=== PATIENT | female | born 1985 | race Two or more races ===

== ENCOUNTER 2016-07-29 02:21 | Emergency (ER) | payer MEDICAID ==
[~2016-07-29] VITALS: Ht 165.1 cm; Wt 71.7 kg
[2016-07-29] MEDS ORDERED: FOLIC ACID1 MG ORAL (02:33)
--- NOTE | 2016-07-29 02:51 | Emergency Room Report ---
History of Present Illness General Chief Complaint: Pain Source: Patient Present Illness HPI Patient is discharged from [facility] earlier today. She was admitted there for 4-5 days. She had a sickle thalassemia crisis. She is allegedly discharged with Dilaudid. She's not been able to keep the pills down because she's been vomiting. She does complain about some abdominal pain and also pain in her joints. She's also had some right-sided facial pain recently. She was transfused at [facility]. She states the pain was the same as now when discharged = 04/26. Should gets crisis about every month. She usually gets her care at [facility]. She is up in this area because she is on vacation staying in a hotel. (This history changed see further.) LNMP = 2 weeks ago - normal for her. No dysuria. No diarrhea. Slight headache. Post splenectomy 2 years ago. No fevers, chills, joint warmth, chest pain, SOB. Allergies: Coded Allergies: No Known Allergies (Unverified , 07/29/16) Patient History Past Medical History: see triage record, other - sickle thallasemia Past Surgical History: other - splenectomy Social History: Reports: smoking Social History Narrative with boyfriend Last Menstrual Period: jul 22 Now: No Reviewed Nursing Documentation: PMH: Agreed, PSxH: Agreed Nursing Documentation-PMH Past Medical History: No History, Except For Hx Asthma: Yes Hx Gastrointestinal Problems: Yes - SPLEEN REMOVED 2014 Review of Systems All Other Systems: negative except mentioned in HPI Physical Exam Vital Signs Date Time Temp Pulse Resp B/P Pulse Ox O2 Delivery O2 Flow Rate FiO2 07/29/16 02:24 97.5 79 16 114/63 98 Room Air Sp02 EP Interpretation: reviewed, normal General Appearance: well appearing, no apparent distress, GCS 15 Head: normocephalic Eyes: bilateral eye conjunctivae pale - slightly, bilateral eye other - contacts ENT: moist mucus membranes Neck: supple Respiratory: chest non-tender, lungs clear, normal breath sounds Cardiovascular #1: regular rate, rhythm Cardiovascular #2: 2+ radial (R) Gastrointestinal: normal inspection, normal bowel sounds, non tender, no mass, non-distended Musculoskeletal: back normal, gait/station normal, normal range of motion Neurologic: alert, oriented x3 - grossly normal Psychiatric: mood/affect normal Skin: warm/dry, pallor - minimal Medical Decision Making Diagnostic Impression: Primary Impression: Sickle cell crisis Additional Impression: AMA ER Course Patient with crisis pain and vomiting. DDx: bone marrow failure, viral syndrome , other bacterial process (though afebrile), crisis, transfusion reaction. Recent transfusion. Emergent evaluation with labs and xray. Will pursue pain control and some IV hydration. Will also treat with zofran. I moved to admit the patient because she was vomiting and had uncontrolled pain. Patient immediately states that she did not get enough dilaudid - that she takes 3 mg orally. Given more dilaudid. Patient refuses admission. States moving to [place] Tuesday. Patient clearly narcotized. Again agreed to be admitted. Again refuses admission. States not want to come into the hospital because she is leaving area to move to [place]. Explained risk of . Laboratory Tests Test 07/29/16 03:00 07/29/16 03:40 White Blood Count 14.8 K/UL (4.8-10.8) H Red Blood Count 4.02 M/UL (4.20-5.40) L Hemoglobin 9.2 G/DL (12.0-16.0) L Hematocrit 28.2 % (37.0-47.0) L Mean Corpuscular Volume 70 FL (80-99) L Mean Corpuscular Hemoglobin 22.8 PG (27.0-31.0) L Mean Corpuscular Hemoglobin Concent 32.6 G/DL (32.0-36.0) Red Cell Distribution Width 17.1 % (11.6-14.8) H Platelet Count 568 K/UL (150-450) H Mean Platelet Volume 6.8 FL (6.5-10.1) Neutrophils (%) (Auto) 39.4 % (45.0-75.0) L Lymphocytes (%) (Auto) 36.7 % (20.0-45.0) Monocytes (%) (Auto) 10.4 % (1.0-10.0) H Eosinophils (%) (Auto) 5.8 % (0.0-3.0) H Basophils (%) (Auto) 7.7 % (0.0-2.0) H Reticulocyte Count 2.8 % (0.0-2.0) H Prothrombin Time 9.9 SEC (9.30-11.50) Prothrombin Time INR 1.0 (0.9-1.1) PTT 26 SEC (23-33) Sodium Level 140 mEQ/L (135-145) Potassium Level 4.1 mEQ/L (3.4-4.9) Chloride Level 100 mEQ/L (98-107) Carbon Dioxide Level 26 mEQ/L (20-30) Anion Gap 14 (5-15) Blood Urea Nitrogen 7 mg/dL (7-23) Creatinine 0.8 mg/dL (0.5-0.9) Estimate Glomerular Filtration Rate > 60 mL/min (>60) Glucose Level 103 mg/dL (74-106) Calcium Level 9.2 mg/dL (8.6-10.2) Total Bilirubin 1.3 mg/dL (0.0-1.2) H Direct Bilirubin Pending Aspartate Amino Transferase (AST) 51 U/L (5-40) H Alanine Aminotransferase (ALT) 46 U/L (3-33) H Alkaline Phosphatase 63 U/L (35-104) Lactate Dehydrogenase 282 U/L (135-230) H Total Creatine Kinase 84 U/L (26-140) Pro-B-Type Natriuretic Peptide 147 pg/mL (0-125) H Total Protein 7.1 g/dL (6.6-8.7) Albumin 4.5 g/dL (3.5-5.2) Globulin 2.6 g/dL Albumin/Globulin Ratio 1.7 (1.0-2.7) Urine Color Yellow Urine Appearance Clear Urine pH 6.5 (4.5-8.0) Urine Specific [place] 1.010 (1.005-1.035) Urine Protein Negative (NEGATIVE) Urine Glucose (UA) Negative (NEGATIVE) Urine Ketones Negative (NEGATIVE) Urine Occult Blood Negative (NEGATIVE) Urine Nitrite Negative (NEGATIVE) Urine Bilirubin Negative (NEGATIVE) Urine Urobilinogen 1 MG/DL (0.0-1.0) H Urine Leukocyte Esterase Negative (NEGATIVE) Urine HCG, Qualitative Negative EKG Diagnostic Results Rate: normal Rhythm: NSR ST Segments: no acute changes Rhythm Strip Diag. Results EP Interpretation: yes Rhythm: NSR, no PVC's, no ectopy, other - sinus arrhythmia Chest X-Ray Diagnostic Results EP Interpretation: Yes Findings: no consolidation, no effusion, no pneumothorax, other - poor inspiration Number of Views: 1 Last Vital Signs Date Time Temp Pulse Resp B/P Pulse Ox O2 Delivery O2 Flow Rate FiO2 07/29/16 05:15 97.5 72 17 101/47 99 Room Air Status: improved Disposition: AGAINST MEDICAL ADVICE Condition: Improved Tay Singh M.D. Jul 29, 2016 02:51
[2016-07-29] MEDS ORDERED: HYDROmorphone 1mg/ml Carpuject IVP ONE (03:00)
[2016-07-29] MEDS ORDERED: Ketorolac 30mg Inj IV ONE (03:00)
[2016-07-29 03:15] VITALS: BP 95/64
[2016-07-29 03:27] LABS: BASOPHILS % (AUTO) 7.7 % (0.0-2.0); EOSINOPHILS % (AUTO) 5.8 % (0.0-3.0); LYMPHOCYTES % (AUTO) 36.7 % (20.0-45.0); MEAN CORPUSCULAR HEMOGLOBIN 22.8 PG (27.0-31.0); MEAN CORPUSCULAR HGB CONC 32.6 G/DL (32.0-36.0); MEAN CORPUSCULAR VOLUME 70 FL (80-99); MEAN PLATELET VOLUME 6.8 FL (6.5-10.1); MONOCYTES % (AUTO) 10.4 % (1.0-10.0); NEUTROPHILS % (AUTO) 39.4 % (45.0-75.0); PLATELET COUNT 568 K/UL (150-450); RED BLOOD COUNT 4.02 M/UL (4.20-5.40); RED CELL DISTRIBUTION WIDTH 17.1 % (11.6-14.8); WHITE BLOOD COUNT 14.8 K/UL (4.8-10.8)
[2016-07-29 03:37] LABS: PROTHROMBIN TIME 9.9 SEC (9.30-11.50)
[2016-07-29 03:41] LABS: ALANINE AMINOTRANSFERASE 46 U/L (3-33); ALBUMIN/GLOBULIN RATIO 1.7 (1.0-2.7); ANION GAP 14 (5-15); ASPARTATE AMINO TRANSFERASE 51 U/L (5-40); CALCIUM 9.2 mg/dL (8.6-10.2); CARBON DIOXIDE 26 mEQ/L (20-30); CHLORIDE 100 mEQ/L (98-107); CREATININE 0.8 mg/dL (0.5-0.9); GLOMERULAR FILTRATION RATE > 60 mL/min (>60); HEMOLYSIS 3; LACTATE DEHYDROGENASE 282 U/L (135-230); POTASSIUM 4.1 mEQ/L (3.4-4.9); SODIUM 140 mEQ/L (135-145); TOTAL PROTEIN 7.1 g/dL (6.6-8.7)
[2016-07-29 03:55] LABS: APPEARANCE,URINE CLEAR; KETONES,URINE NEGATIVE (NEGATIVE); LEUKOCYTE ESTERASE ,URINE NEGATIVE (NEGATIVE); NITRITE,URINE NEGATIVE (NEGATIVE); PH,URINE 6.5 (4.5-8.0); PROTEIN,URINE NEGATIVE (NEGATIVE); UROBILINOGEN,URINE 1 MG/DL (0.0-1.0)
[2016-07-29 04:00] VITALS: BP 113/66
[2016-07-29] MEDS ORDERED: Hydromorphone 0.5mg/0.5ml inj IVP ONE (04:00)
[2016-07-29] MEDS ORDERED: OXYCONTIN10 MG ORAL (04:03)
[2016-07-29] MEDS ORDERED: HYDROMORPHO2 MG/1 M5 PO (04:03)
[2016-07-29 04:35] LABS: RETICULOCYTE COUNT 2.8 % (0.0-2.0)
[2016-07-29 05:00] VITALS: BP 101/47
[2016-07-29 05:15] VITALS: BP 101/47
[2016-07-29 06:28] LABS: BILIRUBIN,DIRECT 0.4 mg/dL (0.1-0.3)
--- NOTE | 2016-07-29 14:59 | Diagnostic Imaging Report ---
Indications: Chest pain Technique: Portable AP chest Findings: Comparison: None Suboptimal inspiration, lordotic projection limits evaluation. Cardiac silhouette enlarged. Pulmonary vasculature within normal limits. Visualized portions of lungs and pleura clear. No abnormal mediastinal widening. IMPRESSION: Limited exam demonstrating no evidence of acute cardiopulmonary disease. Upright PA and lateral chest radiographs with better inspiratory effort and optimal technique recommended for more complete evaluation. Cardiomegaly
--- NOTE | 2016-07-29 20:10 | Cardiology Report ---
APPROVED REPORT EKG Measurement Heart [id number] Normal sinus rhythm with sinus arrhythmia Nonspecific T wave abnormality Abnormal ECG
== END 2016-07-29 05:17 | disposition left against medical advice (07) ==
LOC: EMR 02:47
DX: D57.419 Sickle-cell thalassemia, unspecified, with crisis (principal); J45.909 Unspecified asthma, uncomplicated; Z90.81 Acquired absence of spleen; I51.7 Cardiomegaly
CPT/HCPCS: 36415; 71010; 80053; 81003; 81025; 82248; 82550; 83615; 83880; 85025; 85044; 85610; 85730; 86850; 86870; 86900; 86901; 93005; 96361; 96374; 96375; 99284; J1170; J1885; J2405